=== PATIENT | male | born 1980 | race Caucasian/White ===

== ENCOUNTER 2019-03-24 05:43 | Inpatient (IN) | payer BC ==
[~2019-03-24] VITALS: Ht 182.9 cm; Wt 86.2 kg
== END 2019-03-25 13:39 | disposition left against medical advice (07) | DRG 101 ==
LOC: ER 05:43 → MEDJ 13:48
PROVIDERS: ADMIT Internal Medicine
PROC: B030ZZZ Magnetic Resonance Imaging (MRI) of Brain (ICD-10-PCS; principal; 2019-03-24)
PROC: BW28ZZZ Computerized Tomography (CT Scan) of Head (ICD-10-PCS; 2019-03-24)
DX: G40.802 Other epilepsy, not intractable, without status epilepticus (principal)
CPT/HCPCS: 70544